=== PATIENT | female | born 1980 | race Caucasian/White ===

== ENCOUNTER 2018-04-04 08:07 | Inpatient (IN) | payer BC ==
[2018-04-04 08:55] LABS: BASO % 0.6 % (0-2.0); EOS % 0.4 % (0-4.5); HEMATOCRIT 36.6 % (32.4-45.2); HEMOGLOBIN 12.5 GM/dL (10.7-15.3); LYMPH % 18.9 % (8-40); MCH 32.6 pg (25.7-33.7); MCHC 34.3 g/dl (32.0-36.0); MEAN CELL VOLUME 94.8 fl (80-96); MEAN PLT VOLUME 9.4 fl (7.5-11.1); MONO % 7.6 % (3.8-10.2); NEUT % 72.5 % (42.8-82.8); PLATELET COUNT 106 K/MM3 (134-434); RBC 3.85 M/mm3 (3.60-5.2); RDW 12.8 % (11.6-15.6)
[2018-04-04 09:09] LABS: ANION GAP 12 (8-16); BLOOD UREA NITROGEN 12 mg/dL (7-18); CALCIUM 8.7 mg/dL (8.5-10.1); CHLORIDE 100 mmol/L (98-107); CO2 25 mmol/L (21-32); CREATININE 0.6 mg/dL (0.55-1.02); GLUCOSE,RANDOM 123 mg/dL (74-106); POTASSIUM 3.6 mmol/L (3.5-5.1); SODIUM 137 mmol/L (136-145)
[2018-04-04 09:10] LABS: INR 0.92 (0.82-1.09); PROTHROMBIN TIME (PATIENT) 10.4 SEC (9.7-13.0)
[2018-04-04 09:13] LABS: ACTIVATED PTT 25.8 SECONDS (25.2-36.5)
[2018-04-04 09:16] VITALS: BMI 25.3
[2018-04-04] MEDS ORDERED: DEXTROSE 5%-LACTATED RINGERS 1,000 ML IV SCH ×2 (09:30→10:15)
[2018-04-04] MEDS ORDERED: OXYTOCIN 30 UNITS in 0.9% NS 30 UNIT/500 ML INFUS.BAG IVPB ONE (09:58)
--- NOTE | 2018-04-04 09:58 | HP ---
Past Medical History - Primary Care Physician PCP:: Francisco Luz - Admission Chief Complaint: 37yo P1 with at EGA 40w3d admitted for labor indx. History of Present Illness: complicated by: Prior delivery with possible shoulder dystocia-- records don't reflect this but pt reported a difficult (?) delivery. She declined C/S this time. AMA Gest Thrombocytopenia-- Plt 106K Hx of drug use- on Subutex Depression/Anxiety- stable History Source: Patient, Medical Record Limitations to Obtaining History: No Limitations - Past Medical History TIRE ADJUSTER: No: Alzheimer's, CVA, Dementia, Migraine, Multiple Sclerosis, Peripheral Neuropathy, Parkinson's, Seizure, Syncope, TIA, Vertigo, Other Cardiovascular: No: AFIB, Aneurysm, Aortic Insufficiency, Aortic Stenosis, CAD, CHF, Deep Vein Thrombosis, HTN, Hyperlipdemia, IA, Mitral Insufficiency, Mitral Stenosis, Murmur, Pulmonary Hypertension, Other Pulmonary: No: Asthma, Bronchitis, Cancer, COPD, O2 Dependent, Pneumonia, Previously Intubated, Pulmonary Embolus, Pulmonary Fibrosis, Sleep Apnea, Other Gastrointestinal: No: Ascites, Cancer, Constipation, Crohn's Disease, Diverticulitis, Diverticulosis, Esophageal Varices, Gastritis, GERD, GI Bleed, Hemorrhoids, Hiatal Hernia, Inflamatory Bowel Disease, Irritable Bowel Disease, Pancreatitis, Peptic Ulcer Disease, Ulcerative Colitis, Other Hepatobiliary: No: Cirrhosis, Cholelithiasis, Cholecystitis, Choledocholithiasis , Hepatitis A, Hepatitis B, Hepatitis C, Other Renal/: No: Renal Failure, Renal Inusuff, BPH, Cancer, Hematuria, Hemodialysis , Neurogenic Bladder, Renal Calculi, UTI, Other Reproductive: No: Ectopic , Endometriosis, Fibroids, PID, Polycystic Ovary Syndrome, Postmenopausal, Other ...: 4 ...Para: 1 ...Term: 1 ...: 0 ...Spon : 1 ...Induced : 1 ...Multiple Gestation: 0 ...LMP: 05/17/17 ... Weeks Gestation by Dates: 40.2 ...EDC by Dates: 04/02/18 Heme/Onc: Yes: Thrombocytopenia (Gestational) Infectious Disease: Yes: Other (exposed to Parvovirus B19 in pregn) Psych: Yes: Addictions, Depression Musculoskeletal: No: Bursitis, Chronic low back pain, Hemiparesis, Hemiplegia, Osteoarthritis, Paraplegia, Other Rheumatology: No: Fibromyalgia, Gout, Lupus, Rheumatoid Arthritis, Sarcoidosis, Vasculitis, Other ENT: No: Allergic Rhinitis, Sinusitis, Other Endocrine: No: [place]'s Disease, [place]'s Disease, Diabetes Insipidus, Diabetes Mellitus, Hyperparathyroidism, Hyperthyroidism, Hypothyroidism, Osteopenia, SIADH, Other Dermatology: No: Basal Cell, Cellulitis, Eczema, Melanoma, Psoriasis, Squamous Cell, Other - Past Surgical History Hx Myomectomy: No Hx Transabdominal Cerclage: No Additional Surgical History: Breasy implants, D&C for TOP and Missed Ab - Smoking History Smoking history: Former smoker Have you smoked in the past 12 months: No Aproximately how many cigarettes per day: 20 - Alcohol/Substance Use Hx Alcohol Use: No History of Substance Use: reports: Prescription - Social History Usual Living Arrangement: Yes: With Spouse, With Child ADL: Independent History of Recent Travel: No Home Medications - Allergies Allergies/Adverse Reactions: Allergies Allergy/AdvReac Type Severity Reaction Status Date / Time No Known Allergies Allergy Verified 04/04/18 09:26 - Home Medications Home Medications: Ambulatory Orders Buprenorphine HCl [Subutex -] 1 tab SL DAILY 04/03/18 Ferrous Sulfate [Iron] 325 mg PO DAILY 04/03/18 Vit 108/Iron/Folic AC [ One Tablet] 1 each PO DAILY 04/03/18 Family Disease History - Family Disease History Family Disease History: Other: Brother (cholestrol) Review of Systems - Review of Systems Constitutional: reports: No Symptoms Eyes: reports: No Symptoms HENT: reports: No Symptoms Neck: reports: No Symptoms Cardiovascular: reports: No Symptoms Respiratory: reports: No Symptoms Gastrointestinal: reports: No Symptoms Genitourinary: reports: No Symptoms Breasts: reports: No Symptoms Reported Musculoskeletal: reports: No Symptoms Integumentary: reports: No Symptoms Neurological: reports: No Symptoms Endocrine: reports: No Symptoms Hematology/Lymphatic: reports: No Symptoms Psychiatric: reports: No Symptoms Pain Intensity: 0 Physical Exam - Maternity Vital Signs: Vital Signs Temperature 98.3 F 04/04/18 09:00 Pulse Rate 72 04/04/18 09:00 Respiratory Rate 18 04/04/18 09:00 Blood Pressure 105/55 04/04/18 09:00 O2 Sat by Pulse Oximetry (%) Constitutional: Yes: Well Nourished, No Distress, Calm Eyes: Yes: WNL, Conjunctiva Clear HENT: Yes: WNL, Atraumatic, Normocephalic Neck: Yes: WNL, Supple, Trachea Midline Cardiovascular: Yes: WNL, Regular Rate and Rhythm Lungs: Clear to auscultation, Normal air movement Breast(s): Yes: WNL - Abdominal Exam/OB Fundal Height: 39 Number of Fetuses: Single Presentation: Vertex Contractions: Yes Regularity: Irregular Intensity: Mild Monitor Mode: External Heart Rate (range): 115 Heart Rate Location: Midline Category: I Accelerations: Non-Uniform Decelerations: None - Vaginal Exam/OB Vaginal Bleediing: No Dilatation (cm): 3 Effacement (%): 50 Amniotic Membrane Status: Intact Presentation: Vertex/Position Station: -3 (Adequate gynecoid pelvis) - Physical Exam Musculoskeletal: Yes: WNL Extremities: Yes: WNL Edema: No Integumentary: Yes: WNL Deep Tendon Reflex Grade: Normal +2 ...Motor Strength: WNL Psychiatric: Yes: WNL, Alert, Oriented - Labs Lab Results: CBC, BMP 04/04/18 08:35 04/04/18 08:35 Hemorrhage Risk Assessment - Risk Factors Medium Risk Factors: Yes: None High Risk Factors: Yes: None Risk Score: 1 Risk Level: Medium Risk Imaging - Results Ultrasound: Report Reviewed Assessment/Plan 37yo P1 with at EGA 40w3d admitted for labor indx. Pt is not in labor. Fetus with Category I tracing. Adequate gynecoid pelvimetry on exam. We had long discussion re: risks, benefits, and alternatives of labor induction. I explained the options of expectant management awaiting spontaneous labor, induction of labor, and elective section. The risks of uterine tachysystole, distress, uterine rupture, need for emergency C/S, hemorrhage, infection, scarring, etc. were discussed. We also discussed the risks of meconium aspiration, shoulder dystocia, and anesthesia options. The pt requested to proceed with induction. We discussed the alternative methods of induction with Cervidil, Cytotec, Folley ballon, and pitocin. The pt prefers pitocin.
[2018-04-04] MEDS ORDERED: TUBERCULIN PPD 5 TU/0.1ML SYRINGE (IN PATIENT USE ONLY) ID ONE (10:00)
[2018-04-04] MEDS ORDERED: OXYTOCIN 30 UNITS in 0.9% NS 30 UNIT/500 ML INFUS.BAG IVPB SCH (10:15)
[2018-04-04 10:25] LABS: COCAINE, UR NEGATIVE ng/ml (CUTOFF=300); METHADONE, UR NEGATIVE ng/ml (CUTOFF=300); OPIATES, URI NEGATIVE ng/ml (CUTOFF=300); PHENCYCLIDINE,URINE NEGATIVE ng/ml (CUTOFF=25); URINE AMPHETAMINES NEGATIVE ng/ml (CUTOFF=500); URINE BARBITURATES NEGATIVE ng/ml (CUTOFF=200); URINE BENZODIAZEPINES NEGATIVE ng/ml (CUTOFF=200)
[2018-04-04] MEDS ORDERED: OXYTOCIN 20 UNITS in 0.9% NS 20 UNIT/1,000 ML INFUS.BAG IV ONE ×2 (13:56→19:14)
[2018-04-04] MEDS ORDERED: FENTANYL/BUPIVACAINE/NS/PF - PCEA - 50 ML DISP.SYRIN EP ONE (15:50)
[2018-04-04] MEDS ORDERED: BUPIVACAINE HCL/PF 0.25% (2.5MG/ML) 10 ML VIAL ONE (15:55)
[2018-04-04] MEDS ORDERED: NALOXONE HCL 0.4 MG/ML VIAL IVPUSH PRN (17:10)
[2018-04-04] MEDS ORDERED: ELECTROLYTE-148 SOLN 1,000 ML IV ONE (17:15)
[2018-04-04] MEDS ORDERED: FENTANYL/BUPIVACAINE/NS/PF - PCEA - 50 ML DISP.SYRIN EP SCH (17:15)
[2018-04-04] MEDS: ACETAMINOPHEN 325 MG TABLET (FP) PO PRN (20:00)
[2018-04-04] MEDS ORDERED: ACETAMINOPHEN 325 MG TABLET (FP) ONE (20:04)
--- NOTE | 2018-04-04 20:22 | PN ---
Ante-Partal Exam - Subjective Subjective: No complaints. Comfortable wit epidural. Vital Signs: Vital Signs Temperature 98.5 F 04/04/18 20:00 Pulse Rate 81 04/04/18 20:00 Respiratory Rate 18 04/04/18 20:00 Blood Pressure 112/66 04/04/18 20:00 O2 Sat by Pulse Oximetry (%) 100 04/04/18 20:00 Bleeding: No Headache: No Visual changes: No Right upper quadrant pain: No Pain (scale 1-10): 0 - Contractions Contractions: Yes Regularity: Regular (q2-3 min) Intensity: Unaware Monitor Mode: External - Exam during Labor Heart Rate: 115 Variability: Moderate Heart Rate Location: Midline Category: I Monitor Accelerations: Present Monitor Decelerations: None Exam: Vaginal Dilatation (cm): 10 Effacement (%): 100 Amniotic Membrane Status: Leaking Amniotic Fluid: Clear Presentation: Vertex Station: +1 Remarks: Adequate pelvimetry - Intrapartum Hemorrhage Risk Medium Risk Factors: None High Risk Factors: None Risk Score: 0 Risk Level: Low Risk - Assessment/Plan Assessment/Plan: P1 with second stage of labor. The pt does not feel any contractions and attempt to push was ineffective. Epidural dose was lowered and plan to await till pt can push. Fetus with Category I tracing and requires no intervention. Pt requested Tylenol for headache.
[2018-04-04] MEDS ORDERED: BENZOCAINE 28 GM HEMORRHOIDAL OINTMENT TP PRN (23:19)
[2018-04-04] MEDS ORDERED: BISACODYL 10 MG SUPP.RECT RC PRN (23:19)
[2018-04-04] MEDS ORDERED: WITCH HAZEL 50% (TUCKS) 40 PAD/JAR PAD TP PRN (23:19)
[2018-04-04] MEDS ORDERED: METHYLERGONOVINE MALEATE 0.2 MG/1 ML AMP IM PRN (23:19)
[2018-04-04] MEDS ORDERED: ACETAMINOPHEN 325 MG TABLET (FP) PO PRN (23:19)
[2018-04-04] MEDS ORDERED: BENZOCAINE 20% 57 GM BOTTLE TP PRN (23:19)
[2018-04-04] MEDS ORDERED: OXYTOCIN 20 UNITS in 0.9% NS 20 UNIT/1,000 ML INFUS.BAG IV SCH (23:30)
--- NOTE | 2018-04-04 23:34 | PN ---
Delivery - Delivery Vaginal Delivery: No Problems, Spontaneous Type of Anesthesia: Local, Epidural Episiotomy/Laceration: Left Mediolateral, Perineal Extension/lac, 1st degree, 2nd degree EBL (cc): 400 Delivery, Single - Stages of Labor Date 1st Stage Initiatied: 04/04/18 Time 1st Stage Initiated: 02:00 Date 2nd Stage Initiated: 04/04/18 Time 2nd Stage Initiated: 18:20 Date of Delivery: 04/04/18 Time of Delivery: 21:54 Time Placenta Delivered: 22:00 Placenta: Yes: Spontaneous, Normal Configuration - Condition of Infant Presser Cotton Ginning/Computing Tutor Present: No Infant Gender: Male Weight: 3.77 kg Position: Right, OA Total Hours ROM (Hrs/Mins): 7hrs 40min - 1 Minute Total Score: 9 5 Minutes Total Score: 9 - Feeding Plan Initial Plan: Exclusive throughout hospitalization
[2018-04-05] MEDS: ACETAMINOPHEN 325 MG TABLET (FP) PO PRN (05:18)
[2018-04-05] MEDS: IBUPROFEN 600 MG TABLET (FP) PO PRN (05:19)
[2018-04-05 07:18] LABS: BASO % 0.2 % (0-2.0); EOS % 0.3 % (0-4.5); HEMATOCRIT 29.1 % (32.4-45.2); HEMOGLOBIN 10.4 GM/dL (10.7-15.3); LYMPH % 8.4 % (8-40); MCH 33.3 pg (25.7-33.7); MCHC 35.6 g/dl (32.0-36.0); MEAN CELL VOLUME 93.3 fl (80-96); MEAN PLT VOLUME 9.6 fl (7.5-11.1); MONO % 8.2 % (3.8-10.2); NEUT % 82.9 % (42.8-82.8); PLATELET COUNT 97 K/MM3 (134-434); RBC 3.12 M/mm3 (3.60-5.2); RDW 12.5 % (11.6-15.6); WHITE BLOOD COUNT 12.1 K/mm3 (4.0-10.0)
--- NOTE | 2018-04-05 08:48 | PN ---
Post Progress Note - Subjective Subjective: No complaints Post Day: 1 Type of Delivery: Vital Signs: Vital Signs Temperature 98.6 F 04/05/18 06:00 Pulse Rate 63 04/05/18 06:00 Respiratory Rate 20 04/05/18 06:00 Blood Pressure 95/52 04/05/18 06:00 O2 Sat by Pulse Oximetry (%) 100 04/04/18 23:15 Breast Exam: Yes: Soft Uterus: Yes: Fundus Firm, Fundus below umbilicus, Non-tender Abdomen/GI: Yes: Abdomen soft, Tolerating PO Lochia: Yes: Rubra Lochia, amount: Small Extremities: Yes: Calves non-tender Perineum: Yes: Laceration (repair intact) - Labs Labs: CBC WBC 12.1 K/mm3 (4.0-10.0) H 04/05/18 06:00 RBC 3.12 M/mm3 (3.60-5.2) L 04/05/18 06:00 Hgb 10.4 GM/dL (10.7-15.3) L 04/05/18 06:00 Hct 29.1 % (32.4-45.2) L D 04/05/18 06:00 MCV 93.3 fl (80-96) 04/05/18 06:00 MCH 33.3 pg (25.7-33.7) 04/05/18 06:00 MCHC 35.6 g/dl (32.0-36.0) 04/05/18 06:00 RDW 12.5 % (11.6-15.6) 04/05/18 06:00 Plt Count 97 K/MM3 (134-434) L 04/05/18 06:00 MPV 9.6 fl (7.5-11.1) 04/05/18 06:00 Absolute Neuts (auto) 10.0 # 04/05/18 06:00 Neutrophils % 82.9 % (42.8-82.8) H 04/05/18 06:00 Lymphocytes % 8.4 % (8-40) D 04/05/18 06:00 Monocytes % 8.2 % (3.8-10.2) 04/05/18 06:00 Eosinophils % 0.3 % (0-4.5) 04/05/18 06:00 Basophils % 0.2 % (0-2.0) 04/05/18 06:00 Nucleated RBC % 0 % (0-0) 04/05/18 06:00 Assessment/Plan 37yo P2 s/p , doing well stable, afebrile. care instructions reviewed. Continue routine care. Ambulation encouraged Discharge instruction reviewed.
--- NOTE | 2018-04-05 08:50 | DS ---
Physical Exam-WASTE HAND Vital Signs: Vital Signs Temperature 98.6 F 04/05/18 06:00 Pulse Rate 63 04/05/18 06:00 Respiratory Rate 20 04/05/18 06:00 Blood Pressure 95/52 04/05/18 06:00 O2 Sat by Pulse Oximetry (%) 100 04/04/18 23:15 Constitutional: Yes: Well Nourished, No Distress, Calm Eyes: Yes: WNL, Conjunctiva Clear HENT: Yes: WNL, Atraumatic, Normocephalic Neck: Yes: WNL, Supple, Trachea Midline Cardiovascular: Yes: WNL, Regular Rate and Rhythm Respiratory: Yes: WNL, Regular, CTA Bilaterally Gastrointestinal: Yes: WNL, Normal Bowel Sounds, Soft ...Rectal Exam: Yes: Deferred Renal/: Yes: WNL ....Post : Yes: Uterus firm, Uterus non-tender, Slight lochia rubra Breast(s): Yes: WNL Musculoskeletal: Yes: WNL Extremities: Yes: WNL Edema: No Integumentary: Yes: WNL Neurological: Yes: WNL, Alert, Oriented ...Motor Strength: WNL Psychiatric: Yes: WNL, Alert, Oriented Labs: CBC, BMP 04/05/18 06:00 04/04/18 08:35 Delivery - Delivery Vaginal Delivery: No Problems, Spontaneous Type of Anesthesia: Local, Epidural Episiotomy/Laceration: Left Mediolateral, Perineal Extension/lac, 1st degree, 2nd degree EBL (cc): 400 Delivery, Single - Stages of Labor Date 1st Stage Initiatied: 04/04/18 Time 1st Stage Initiated: 02:00 Date 2nd Stage Initiated: 04/04/18 Time 2nd Stage Initiated: 18:20 Date of Delivery: 04/04/18 Time of Delivery: 21:54 Date Placenta Delivered: 04/04/18 Time Placenta Delivered: 22:00 Placenta: Yes: Spontaneous, Normal Configuration - Condition of Infant Nuclear Weapons Specialist/Absence Management Consultant Present: No Infant Gender: Male Weight: 3.77 kg Position: Right, OA Total Hours ROM (Hrs/Mins): 7hrs 40min - 1 Minute Total Score: 9 5 Minutes Total Score: 9 - [place] Feeding Plan Initial Plan: Exclusive throughout hospitalization Benefits of Exclusively reinforced: Yes Discharge Summary Reason For Visit: LABOR Post term , gestational thrombocytopenia, AMA Procedures: Principal: Labor indx, Hospital Course: Normal recovery Condition: Good - Instructions Diet, Activity, Other Instructions: Physical activity Resume your normal everyday activity as tolerated no heavy lifting or exercise until seen by your surgeon. You may walk unlimited cely of and climb stairs. You may resume driving the car when you feel safe and comfortable behind the wheel. No sexual activity as instructed. Wound care If you have a bandage, leave it on, and keep dry for 48-72 hours. After that time discard the outer bandage. If they are tapes on the skin under the out of bandage leave them in place. They will peel off in the next 7 to 10 days. Do Not Peel them off. You may shower the day after surgery. If there are tapes present on the skin, you may shower over them. Diet There are no dietary restrictions. Eat healthy, high-fiber foods. Drink 6 to 8 glasses of liquid each day. This will assist in keeping your bowels are regular. Pain management You may take Tylenol or acetaminophen or Ibuprofen (for example, Motrin, Advil etc.) from my pain prescription medication is ordered should be taken as prescribed for moderate to severe pain. Call MD for any of the following: Severe pain not relieved by medication Fever of 101 or higher Excessive bleeding or drainage on dressing Inability to urinate Referrals: Francisco Luz MD [Staff Physician] - Disposition: HOME - Home Medications Comprehensive Discharge Medication List: Ambulatory Orders Buprenorphine HCl [Subutex -] 1 tab SL DAILY 04/03/18 Ferrous Sulfate [Iron] 325 mg PO DAILY 04/03/18 Vit 108/Iron/Folic AC [ One Tablet] 1 each PO DAILY 04/03/18
[2018-04-05] MEDS ORDERED: BUPRENORPHINE HCL 2 MG TAB.SUBL SL SCH (10:00)
[2018-04-05] MEDS: PRENATAL VITAMINS W/ FOLIC ACID TABLET (FP) PO SCH (10:00)
[2018-04-05] MEDS ORDERED: SENNOSIDES/DOCUSATE COMBO (SENNA PLUS) TABLET (UD) PO PRN (22:00)
--- NOTE | 2018-04-06 00:50 | PN ---
Post Progress Note - Subjective Subjective: Patient without acute complaints. Reports tolerating oral intake without nausea or vomiting. Ambulating without dizziness. Denies fevers or chills. Pain well controlled with oral pain medication. without difficulty. Passing flatus. Post Day: 2 Type of Delivery: Vital Signs: Vital Signs Temperature 98.4 F 04/05/18 22:00 Pulse Rate 77 04/05/18 22:00 Respiratory Rate 18 04/05/18 22:00 Blood Pressure 94/71 04/05/18 22:00 O2 Sat by Pulse Oximetry (%) 100 04/04/18 23:15 Breast Exam: Yes: Soft Uterus: Yes: Fundus Firm, Fundus below umbilicus Abdomen/GI: Yes: Abdomen soft, Passing flatus, Tolerating PO. No: Abdominal Distention, Tender Lochia: Yes: Serosa Lochia, amount: Small Extremities: Yes: Calves non-tender. No: Edema Perineum: Yes: Laceration Activity: Ambulating - Labs Labs: CBC WBC 12.1 K/mm3 (4.0-10.0) H 04/05/18 06:00 RBC 3.12 M/mm3 (3.60-5.2) L 04/05/18 06:00 Hgb 10.4 GM/dL (10.7-15.3) L 04/05/18 06:00 Hct 29.1 % (32.4-45.2) L D 04/05/18 06:00 MCV 93.3 fl (80-96) 04/05/18 06:00 MCH 33.3 pg (25.7-33.7) 04/05/18 06:00 MCHC 35.6 g/dl (32.0-36.0) 04/05/18 06:00 RDW 12.5 % (11.6-15.6) 04/05/18 06:00 Plt Count 97 K/MM3 (134-434) L 04/05/18 06:00 MPV 9.6 fl (7.5-11.1) 04/05/18 06:00 Absolute Neuts (auto) 10.0 # 04/05/18 06:00 Neutrophils % 82.9 % (42.8-82.8) H 04/05/18 06:00 Lymphocytes % 8.4 % (8-40) D 04/05/18 06:00 Monocytes % 8.2 % (3.8-10.2) 04/05/18 06:00 Eosinophils % 0.3 % (0-4.5) 04/05/18 06:00 Basophils % 0.2 % (0-2.0) 04/05/18 06:00 Nucleated RBC % 0 % (0-0) 04/05/18 06:00 Assessment/Plan 37 yo PPD #2 s/p , afebrile, vital signs stable, doing well 1. Patient stable for discharge home today. 2. Patient encouraged to contact MD for: - Severe pain not controlled by oral pain medication - Fevers or chills - Nausea or vomiting, intolerance of oral intake 3. Patient to follow up in office in 4-6 weeks for visit
[2018-04-06] MEDS: IBUPROFEN 600 MG TABLET (FP) PO PRN (01:47)
[2018-04-06] MEDS: PRENATAL VITAMINS W/ FOLIC ACID TABLET (FP) PO SCH (09:51)
[2018-04-06 10:41] VITALS: BP 100/61; PULSE 73; TEMP 97.8
== END 2018-04-06 13:00 | disposition home or self-care (01) | DRG 775 ==
LOC: JLDR 08:07 → J3W 04-05 00:20
PROVIDERS: ADMIT Obstetrics & Gynecology; ATTEND Obstetrics & Gynecology
PROC: 10E0XZZ Delivery of Products of Conception, External Approach (ICD-10-PCS; principal; 2018-04-04)
PROC: 0KQM0ZZ Repair Perineum Muscle, Open Approach (ICD-10-PCS; 2018-04-04)
PROC: 0W8NXZZ Division of Female Perineum, External Approach (ICD-10-PCS; 2018-04-04)
DX: O48.0 Post-term pregnancy (principal); O99.113 Other diseases of the blood and blood-forming organs and certain disorders involving the immune mechanism complicating pregnancy, third trimester; O70.1 Second degree perineal laceration during delivery; D69.6 Thrombocytopenia, unspecified; O99.343 Other mental disorders complicating pregnancy, third trimester; F32.9 Major depressive disorder, single episode, unspecified; O26.893 Other specified pregnancy related conditions, third trimester; F41.9 Anxiety disorder, unspecified; Z87.891 Personal history of nicotine dependence; Z3A.40 40 weeks gestation of pregnancy; Z37.0 Single live birth
CPT/HCPCS: 36415; 59409; 80048; 80307; 85025; 85610; 85730; 86593; 86850; 86900; 86901

== ENCOUNTER 2018-04-18 18:20 | Emergency (ER) | payer BC ==
--- NOTE | 2018-04-18 18:43 | PDOC ---
Rapid Medical Evaluation Chief Complaint: Vaginal Bleeding Time Seen by Provider: 04/18/18 18:42 Medical Evaluation: Allergies Allergy/AdvReac Type Severity Reaction Status Date / Time No Known Allergies Allergy Verified 04/04/18 09:26 04/18/18 18:43 I have performed a brief in-person evaluation of this patient. The patient presents with a chief complaint of: vaginal bleeding. S/p 2 weeks ago at [facility] w/ Dr Solis and states she has been having vag bleeding since that has worsened today. No abd pain, n/v/f/c. Told low plts during recent admission. Plt 97, 04/05/18 Pertinent physical exam findings:Stable and well dave I have ordered the following:labs The patient will proceed to the ED for further evaluation. Discharge Disposition - Diagnosis Vaginal bleeding - Referrals - Patient Instructions - Post Discharge Activity
[2018-04-18 18:45] VITALS: BP 129/77; PULSE 62; TEMP 97.9; BMI 21.7
[2018-04-18 21:48] LABS: BASO % 1.2 % (0-2.0); EOS % 1.4 % (0-4.5); HEMATOCRIT 39.2 % (32.4-45.2); HEMOGLOBIN 13.4 GM/dL (10.7-15.3); LYMPH % 21.4 % (8-40); MCH 32.6 pg (25.7-33.7); MCHC 34.3 g/dl (32.0-36.0); MEAN CELL VOLUME 95.1 fl (80-96); MEAN PLT VOLUME 7.9 fl (7.5-11.1); MONO % 6.1 % (3.8-10.2); NEUT % 69.9 % (42.8-82.8); PLATELET COUNT 253 K/MM3 (134-434); RBC 4.12 M/mm3 (3.60-5.2); RDW 12.3 % (11.6-15.6); WHITE BLOOD COUNT 8.8 K/mm3 (4.0-10.0)
[2018-04-18 22:20] LABS: URINE APPEARANCE CLEAR; URINE BILIRUBIN NEGATIVE (<2.0 mg/dL); URINE COLOR LTYELLOW; URINE GLUCOSE (UA) NEGATIVE (NEGATIVE); URINE KETONE NEGATIVE (NEGATIVE); URINE NITRITE NEGATIVE (NEGATIVE); URINE UROBILINOGEN NEGATIVE mg/dL (0.2-1.0)
[2018-04-18 22:22] LABS: URINE LEUK ESTERASE 3+ (NEGATIVE); URINE PROTEIN 1+ (NEGATIVE)
[2018-04-18 22:26] LABS: EPI CELLS RARE /HPF (FEW); URINE BACTERIA RARE /hpf (NONE SEEN)
[2018-04-18 22:28] LABS: ANION GAP 8 (8-16); BILIRUBIN,TOTAL 0.6 mg/dL (0.2-1.0); BLOOD UREA NITROGEN 15 mg/dL (7-18); CALCIUM 9.1 mg/dL (8.5-10.1); CHLORIDE 98 mmol/L (98-107); CO2 31 mmol/L (21-32); CREATININE 0.8 mg/dL (0.55-1.02); GLUCOSE,RANDOM 119 mg/dL (74-106); POTASSIUM 4.2 mmol/L (3.5-5.1); SGOT/AST 34 U/L (15-37); SGPT/ALT 32 U/L (12-78); SODIUM 137 mmol/L (136-145); TOT PROT 7.4 g/dl (6.4-8.2)
[2018-04-18 22:29] LABS: ALK PHOS 71 U/L (45-117)
--- NOTE | 2018-04-18 22:52 | PDOC ---
History of Present Illness - General Chief Complaint: Vaginal Bleeding Stated Complaint: VAGINAL BLEEDING, RECENT DELIVERY, LOW PLATELETS Time Seen by Provider: 04/18/18 18:42 History Source: Patient Exam Limitations: No Limitations - History of Present Illness Travel History: No Initial Comments: 04/18/18 22:42 Best Contact:[phone] PCP: Dr. Mckee/Yakelin Pmhx:0 Pshx: 2007/B/L breast augmentation, 2002/D&C, Tonsillectomy @6 yo Allergies: N/A FH:0 Social Hx: Cigarettes/ 0 Alcohol/ 0 Drugs/0 LMP: 05/2017 04/04/2018 37-year-old female presents to the emergency department complaining of vaginal bleed since her normal spontaneous vaginal delivery on 04/04/2018. Patient states her went well, the baby is fine. She noticed a regular menstrual cycle 2 days after her delivery that lasted for approximately one week that she noticed some spotting up until approximately 12 noon today when she noticed the bleeding became heavier causing her to go through 2 pads every 2 hours. The bleeding started slowing down 4 hours later. Patient also admits to some burning upon urination without urgency or frequency. Patient denies dizziness, headache, lightheadedness, nausea/vomiting, fever/chills, blurry vision, diplopia, weakness, chest pain, shortness of breath, back pains, abdominal pains, flank pains, urinary symptoms: Frequency/urgency/hesitancy, hematuria. Past History - Past Medical History Allergies/Adverse Reactions: Allergies Allergy/AdvReac Type Severity Reaction Status Date / Time No Known Allergies Allergy Verified 04/18/18 18:45 Home Medications: Ambulatory Orders Buprenorphine HCl [Subutex -] 1 tab SL DAILY 04/03/18 Ferrous Sulfate [Iron] 325 mg PO DAILY 04/03/18 Vit 108/Iron/Folic AC [ One Tablet] 1 each PO DAILY 04/03/18 Cephalexin Monohydrate [Keflex -] 500 mg PO BID #20 capsule 04/18/18 Asthma: No Cancer: No Cardiac Disorders: No COPD: No Diabetes: No GI Disorders: No Disorders: No HTN: No Kidney Stones: No Seizures: No Thyroid Disease: No Other medical history: low platelets - Surgical History Abdominal Surgery: No Appendectomy: No Cardiac Surgery: No Cholecystectomy: No Lung Surgery: No Neurologic Surgery: No Orthopedic Surgery: No - Reproductive History PID: No - Suicide/Smoking/Psychosocial Hx Smoking Status: Yes Smoking History: Never smoked Have you smoked in the past 12 months: Yes Number of Cigarettes Smoked Daily: 20 If you are a former smoker, when did you quit?: 2012 Information on smoking cessation initiated: No Hx Alcohol Use: No Drug/Substance Use Hx: No Substance Use Type: None Hx Substance Use Treatment: Yes (SUBUTEX) Abd/GI Specific PMHX - Complaint Specific PMHX Hepatitis: No Pancreatitis: No Review of Systems - Review of Systems Able to Perform ROS?: Yes Comments:: 04/18/18 22:52 CONSTITUTIONAL: Absent: fever, chills, diaphoresis, generalized weakness, malaise, loss of appetite HEENT: Absent: rhinorrhea, nasal congestion, throat pain, throat swelling, difficulty swallowing, mouth swelling, ear pain, eye pain, visual Changes CARDIOVASCULAR: Absent: chest pain, loss of consciousness, palpitations, irregular heart rate, peripheral edema RESPIRATORY: Absent: cough, shortness of breath, dyspnea with exertion, orthopnea, wheezing, stridor, hemoptysis GASTROINTESTINAL: Absent: abdominal pain, abdominal distension, nausea, vomiting, diarrhea, constipation, melena, hematochezia GENITOURINARY: Absent: dysuria, frequency, urgency, hesitancy, hematuria, flank pain, genital pain MUSCULOSKELETAL: Absent: myalgia, arthralgia, joint swelling SKIN: Absent: rash, itching, pallor HEMATOLOGIC/IMMUNOLOGIC: +vaginal bleed/spotting Absent: easy bleeding, easy bruising, lymphadenopathy, frequent infections ENDOCRINE: Absent: unexplained weight gain, unexplained weight loss, heat intolerance, cold intolerance NEUROLOGIC: Absent: headache, focal weakness or paresthesias, dizziness, unsteady gait, seizure, mental status changes, bladder or bowel incontinence PSYCHIATRIC: Absent: anxiety, depression, suicidal or homicidal ideation, hallucinations. Is the patient limited Wolof proficient: No *Physical Exam - Vital Signs Last Vital Signs Temp Pulse Resp BP Pulse Ox 97.9 F 62 17 129/77 100 04/18/18 18:43 04/18/18 18:43 04/18/18 18:43 04/18/18 18:43 04/18/18 18:43 - Physical Exam Comments: 04/18/18 22:52 GENERAL: Well developed, well nourished. Awake and alert. No acute distress. HEENT: Normocephalic, atraumatic. PERRLA, EOMI. No conjunctival pallor. Sclera are non- icteric. Moist mucous membranes. Oropharynx is clear. NECK: Supple. Full ROM. No JVD. Carotid pulses 2+ and symmetric, without bruits. No thyromegaly. No lymphadenopathy. CARDIOVASCULAR: Regular rate and rhythm. No murmurs, rubs, or gallops. Distal pulses are 2+ and symmetric. PULMONARY: No evidence of respiratory distress. Lungs clear to auscultation bilaterally. No wheezing, rales or rhonchi. ABDOMINAL: Soft. Non-tender. Non-distended. No rebound or guarding. No organomegaly. Normoactive bowel sounds. MUSCULOSKELETAL Normal range of motion at all joints. No bony deformities or tenderness. No CVA tenderness. EXTREMITIES: No cyanosis. No clubbing. No edema. No calf tenderness. SKIN: Warm and dry. Normal capillary refill. No rashes. No jaundice. NEUROLOGICAL: Alert, awake, appropriate. Cranial nerves 2-12 intact. No deficits to light touch and temperature in face, upper extremities and lower extremities. No motor deficits in the in face, upper extremities and lower extremities. Normoreflexic in the upper and lower extremities. Normal speech. Toes are down- going bilaterally. Gait is normal without ataxia. PSYCHIATRIC: Cooperative. Good eye contact. Appropriate mood and affect. Pelvic: External genitalia normal without lesions. Vaginal vault is clear without blood or discharge. Cervix is long and closed. ED Treatment Course - LABORATORY CBC & Chemistry Diagram: 04/18/18 21:15 04/18/18 21:15 - ADDITIONAL ORDERS Additional order review: Laboratory Results 04/18/18 04/18/18 21:15 21:15 Sodium 137 Potassium 4.2 Chloride 98 Carbon Dioxide 31 Anion Gap 8 BUN 15 Creatinine 0.8 Creat Clearance w eGFR > 60 Random Glucose 119 H Calcium 9.1 Total Bilirubin 0.6 AST 34 ALT 32 Alkaline Phosphatase 71 Total Protein 7.4 Albumin 4.0 Urine Color Ltyellow Urine Appearance Clear Urine pH 7.0 D Ur Specific [place] 1.006 Urine Protein 1+ H Urine Glucose (UA) Negative Urine Ketones Negative Urine Blood 3+ H Urine Nitrite Negative Urine Bilirubin Negative Urine Urobilinogen Negative Ur Leukocyte Esterase 3+ H Urine WBC (Auto) 78 Urine RBC (Auto) 5 Ur Epithelial Cells Rare Urine Bacteria Rare 04/18/18 21:15 RBC 4.12 MCV 95.1 MCHC 34.3 RDW 12.3 MPV 7.9 D Neutrophils % 69.9 Lymphocytes % 21.4 D Monocytes % 6.1 Eosinophils % 1.4 D Basophils % 1.2 D - RADIOLOGY Radiology Studies Ordered: Category Date Time Status TRANSVAGINAL ULTRASOUND US [US] Stat Ultrasound 04/18/18 21:06 Taken Radiograph Interpretation: 04/19/18 00:05 Transvaginal ultrasound: The uterus is normal in size measuring 9.9 x 8.2 x 6.0 cm. No uterine masses are seen. Within the endometrial cavity, there is a fluid and echogenic material consistent with blood/blood clots. There is no definite evidence of retained products of conception. *DC/Admit/Observation/Transfer Diagnosis at time of Disposition: Vaginal bleeding, UTI (urinary tract infection) - Discharge Dispostion Disposition: HOME Condition at time of disposition: Stable Decision to Admit order: No - Prescriptions Prescriptions: Cephalexin Monohydrate [Keflex -] 500 mg PO BID #20 capsule - Referrals Referrals: Cass Turner [Primary Care Provider] - Rick Wallace MD [Staff Physician] - - Patient Instructions Printed Discharge Instructions: DI for Vaginal Bleeding, DI for Urinary Tract Infection (UTI) Additional Instructions: Increase fluids Pelvic rest Follow-up with your hair designer this week or the one listed on your discharge Return back to the ER for severe/persistent or worsening symptoms or any concerns - Post Discharge Activity
[2018-04-18] MEDS ORDERED: CEPHALEXIN MONOHYDRATE 500 MG CAPSULE (UD) PO ONE (23:23)
[2018-04-19] MEDS ORDERED: CEPHALEXIN MONOHYDRATE 500 MG CAPSULE (UD) ONE (00:17)
== END 2018-04-19 00:46 | disposition home or self-care (01) ==
LOC: JER 18:20
DX: N93.9 Abnormal uterine and vaginal bleeding, unspecified (principal); N39.0 Urinary tract infection, site not specified
CPT/HCPCS: 36415; 76830-TC; 80053; 81003; 81015; 85025; 86850; 86900; 86901; 99281-25